=== PATIENT | female | born 1935 | race Caucasian/White ===

== ENCOUNTER 2020-04-03 17:47 | Inpatient (IN) | payer MEDICARE, BC ==
[~2020-04-03] VITALS: Ht 170.2 cm; Wt 85.7 kg
[2020-04-03 18:26] LABS: BASO % 0 % (0-3); EOS % 0 % (0-3); HEMATOCRIT 39.7 % (36.0-47.0); LYMPH # 0.7 x10^3/uL (1.0-4.8); LYMPH % 9 % (24-48); MEAN CORPUSCULAR HEMOGLOBIN 27 pg (25-35); MEAN CORPUSCULAR HGB CONC 33 g/dL (31-37); MEAN CORPUSCULAR VOLUME 83 fL (79-100); MONO # 0.9 x10^3/uL (0.0-1.1); MONO % 12 % (0-9); NEUT # 5.7 x10^3/uL (1.8-7.7); NEUT % 79 % (31-73); PLATELET COUNT 227 x10^3/uL (140-400); RED CELL DISTRIBUTION WIDTH 14.4 % (11.5-14.5); WHITE BLOOD COUNT 7.3 x10^3/uL (4.0-11.0)
--- NOTE | 2020-04-03 18:36 | PHYS DOC ---
Past Medical History Past Medical History: Anxiety, Arthritis, Asthma, Constipation, Diabetes-Type II, High Cholesterol, Other Additional Past Medical Histor: peripheral edema; parkinson; Past Surgical History: No Surgical History Smoking Status: Never Smoker Alcohol Use: None General Adult EDM: Chief Complaint: HYPOGLYCEMIA HPI: HPI: Patient is a 85 year old female with a past medical history of anxiety, asthma, diabetes hyperlipidemia and parkinsons presents with for evaluation after being found by family unresponsive. On EMS arrival patient was unrespon jas with a blood sugar of 58-- she was treated with D10 and became responsive. On my exam patient is alert to name-- she is confused on year, place, and president. She states she lives at her home in [place]. She does not know why she is in the ER. She has no complaints. Review of Systems: Review of Systems: unable to obtain due to altered mental status vs dementia Heart Score: Risk Factors: Risk Factors: DM, Current or recent (<one month) smoker, HTN, HLP, family history of CAD, obesity. Risk Scores: Score 0 - 3: 2.5% MACE over next 6 weeks - Discharge Home Score 4 - 6: 20.3% MACE over next 6 weeks - Admit for Clinical Observation Score 7 - 10: 72.7% MACE over next 6 weeks - Early Invasive Strategies Allergies: Allergies: Allergies Coded Allergies Type Severity Reaction Last Updated Verified No Known Drug Allergies 04/03/20 No Physical Exam: PE: Constitutional: Well developed, well nourished, no acute distress, non-toxic appearance. [] HENT: Normocephalic, atraumatic, bilateral external ears normal, oropharynx moist, no oral exudates, nose normal. [] Eyes: PERRLA, EOMI, conjunctiva normal, no discharge. [] Neck: Normal range of motion, no tenderness, supple, no stridor. [] Cardiovascular:Heart rate regular rhythm, no murmur [] Lungs & Thorax: Bilateral breath sounds clear to auscultation [] Abdomen: Bowel sounds normal, soft, no tenderness, no masses, no pulsatile masses. [] Skin: Warm, dry, no erythema, no rash. [] Back: No tenderness, no CVA tenderness. [] Extremities: No tenderness, no cyanosis, no clubbing, ROM intact, no edema. [] Neurologic: Alert and oriented X 3, normal motor function, normal sensory function, no focal deficits noted. [] Psychologic: Affect normal, judgement normal, mood normal. [] Current Patient Data: Labs: Laboratory Tests Test 04/03/20 17:57 Glucose (Fingerstick) 115 mg/dL (70-99) H Vital Signs: Vital Signs Date Time Temp Pulse Resp B/P (MAP) Pulse Ox O2 Delivery O2 Flow Rate FiO2 04/03/20 17:47 98.3 86 16 155/72 (99) 98 Room Air 98.3 EKG: EKG: [] Radiology/Procedures: Radiology/Procedures: [] Course & Med Decision Making: Course & Med Decision Making Pertinent Labs and Imaging studies reviewed. (See chart for details) [] Dragon Disclaimer: Mari Disclaimer: This electronic medical record was generated, in whole or in part, using a voice recognition dictation system. SOFY HILLMAN DO Apr 03, 2020 18:36
[2020-04-03 19:29] LABS: ALBUMIN 2.9 g/dL (3.4-5.0); ALBUMIN/GLOBULIN RATIO 0.7 (1.0-1.7); CALCIUM 8.8 mg/dL (8.5-10.1); CREATININE 1.2 mg/dL (0.6-1.0); GFR 42.8; TOTAL BILIRUBIN 0.4 mg/dL (0.2-1.0); TOTAL PROTEIN 7.2 g/dL (6.4-8.2)
[2020-04-03 19:37] LABS: POTASSIUM 2.9 mmol/L (3.5-5.1)
[2020-04-03] MEDS ORDERED: IV DEXTROSE 5% - 0.9 % NACL 1,000 ML IV ONE (20:00)
[2020-04-03] MEDS ORDERED: DEXTROSE 50% 25 GM / 50ML DISP.SYRIN. IV ONE ×2 (20:07→20:15)
[2020-04-03] MEDS: POTASSIUM CHLORIDE 10MEQ 100 ML IV SCH ×2 (20:15→21:50)
[2020-04-03] MEDS ORDERED: POTASSIUM CHLORIDE 20 MEQ TABLET.ER. PO ONE (20:15)
[2020-04-03 20:49] LABS: BILIRUBIN,URINE NEGATIVE (NEG); CLARITY,URINE CLEAR; COLOR,URINE YELLOW; NITRITE,URINE NEGATIVE (NEG); PH,URINE 5.5 (<5.0-8.0); PROTEIN,URINE 30 mg/dL (NEG-TRACE)
[2020-04-03 20:54] LABS: HYALINE CASTS, URINE MODERATE /HPF
[2020-04-03 20:55] LABS: AMORPHOUS SEDIMENT,UR PRESENT /HPF; BACTERIA,URINE 0 /HPF (0-FEW); RBC,URINE 0 /HPF (0-2); WBC,URINE 0 /HPF (0-4)
[2020-04-03] MEDS ORDERED: POTASSIUM CL 20MEQ D5-0.45NACL 1,000 ML IV ONE (21:00)
--- NOTE | 2020-04-03 21:41 | RAD ---
Exam: Chest one INDICATION: Hypoglycemia TECHNIQUE: Frontal view of the chest Comparisons: None FINDINGS: The cardiomediastinal silhouette and pulmonary vessels are within normal limits. The lung and pleural spaces are clear. IMPRESSION: No acute cardiopulmonary process. Electronically signed by: Karen Dan MD (04/03/2020 9:37 PM) [place]
[2020-04-03] MEDS ORDERED: ACETAMINOPHEN 325 MG TABLET. PO PRN (22:45)
[2020-04-03] MEDS ORDERED: DEXTROSE 50% 25 GM / 50ML DISP.SYRIN. IV PRN (22:45)
[2020-04-03] MEDS ORDERED: DOCUSATE SODIUM 100 MG CAPSULE. PO PRN (22:45)
[2020-04-03] MEDS ORDERED: guaiFENesin ORAL 200 MG/10 ML LIQUID. PO PRN (22:45)
[2020-04-03] MEDS ORDERED: ONDANSETRON PF 4 MG/2 ML VIAL. IV PRN (22:45)
[2020-04-03] MEDS: HEPARIN for SUB-Q USE 5,000 UNIT/ML VIAL. SQ SCH (23:10)
--- NOTE | 2020-04-04 07:47 | PDOC1 ---
History and Physical Date of Admission Date of Admission DATE: 04/04/20 TIME: 07:41 Identification/Chief Complaint Chief Complaint Confusion Source Source: Caregiver, Chart review History of Present Illness History of Present Illness Ms Quintana is an 85yo F resident of [facility]) w/ PMHx Anxiety, Arthritis, Asthma, Constipation, Diabetes-Type II, High Cholesterol, tremors who was tested positive for COVID 19 on 03/27/2020 presents to ED after being found by assisted living staff unresponsive. On EMS arrival patient was unresponsive with a blood sugar of 58-- she was treated with D10 and became responsive. She awakened confused on year, place, and president, thought she was in [place]. Repeat blood glucose 26 and K 2.9. Started on D5 infusion and admitted for further care. CXR clear. Past Medical History Cardiovascular: HTN, Hyperlipidemia Endocrine: Diabetes Past Surgical History Past Surgical History: No pertinent history Family History Family History: Family History Unknown Social History Smoke: No ALCOHOL: none Drugs: None Current Medications Current Medications Current Medications Potassium Chloride (Klor-Con) 40 meq 1X ONCE PO Last administered on 04/03/20at 20:01; Start 04/03/20 at 20:15; Stop 04/03/20 at 20:16; Status DC Potassium Chloride/Water 100 ml @ 100 mls/hr Q1H IV Last administered on 04/03/20at 21:50; Start 04/03/20 at 20:30; Stop 04/03/20 at 22:29; Status DC Dextrose/Sodium Chloride 1,000 ml @ 75 mls/hr 1X ONCE IV Last administered on 04/03/20at 20:01; Start 04/03/20 at 20:00; Stop 04/04/20 at 09:19 Dextrose (Dextrose 50%-Water Syringe) 25 gm STK-MED ONCE IV ; Start 04/03/20 at 20:07; Stop 04/03/20 at 20:07; Status DC Dextrose (Dextrose 50%-Water Syringe) 25 gm 1X ONCE IV Last administered on 04/03/20at 20:15; Start 04/03/20 at 20:15; Stop 04/03/20 at 20:16; Status DC Potassium Chloride/Dextrose/ Sod Cl 1,000 ml @ 75 mls/hr [id number] ONCE IV ; Start 04/03/20 at 21:00; Stop 04/04/20 at 10:19 Insulin Human Lispro (HumaLOG) 0-5 UNITS TIDWMEALS SQ ; Start 04/04/20 at 08:00 Dextrose (Dextrose 50%-Water Syringe) 12.5 gm PRN Q15MIN PRN IV SEE COMMENTS; Start 04/03/20 at 22:45 Heparin Sodium (Porcine) (Heparin Sodium) 5,000 unit Q8HRS SQ Last administered on 04/03/20at 23:10; Start 04/03/20 at 23:00 Ondansetron HCl (Zofran) 4 mg PRN Q4HRS PRN IV NAUSEA/VOMITING 1ST CHOICE; Start 04/03/20 at 22:45 Acetaminophen (Tylenol) 650 mg PRN Q4HRS PRN PO TEMP OVER 100.4F OR MILD PAIN; Start 04/03/20 at 22:45 Docusate Sodium (Colace) 100 mg PRN BID PRN PO HARD STOOLS; Start 04/03/20 at 22:45 Guaifenesin (Robitussin) 200 mg PRN Q4HRS PRN PO COUGH; Start 04/03/20 at 22:45 Allergies Allergies: Coded Allergies: No Known Drug Allergies (Unverified , 04/03/20) ROS General: YES: Fatigue, Malaise; No: Chills, Night Sweats, Appetite, Other PSYCHOLOGICAL ROS: No: Anxiety, Behavioral Disorder, Concentration difficultie, Decreased libido, Depression, Disorientation, Hallucinations, Hostility, Irritablity, Memory difficulties, Mood Swings, Obsessive thoughts, Physical abuse, Sexual abuse, Sleep disturbances, Suicidal ideation, Other Eyes: No Blurry vision, No Decreased vision, No Double vision, No Dry eyes, No Excessive tearing, No Eye Pain, No Itchy Eyes, No Loss of vision, No Photophobi a, No Scotomata, No Uses contacts, No Uses glasses, No Other HEENT: No: Heacaches, Visual Changes, Hearing change, Nasal congestion, Nasal discharge, Oral lesions, Sinus pain, Sore Throat, Epistaxis, Sneezing, Snoring, Tinnitus, Vertigo, Vocal changes, Other ALLERGY AND IMMUNOLOGY: No: Hives, Insect Bite Sensitivity, Itchy/Watery Eyes, Nasal Congestion, Post Nasal Drip, Seasonal Allergies, Other Hematological and Lymphatic: No: Bleeding Problems, Blood Clots, Blood Transfusions, Brusing, Night Sweats, Pallor, Swollen Lymph Nodes, Other ENDOCRINE: No: Breast Changes, Galactorrhea, Hair Pattern Changes, Hot Flashes, Malaise/lethargy, Mood Swings, Palpitations, Polydipsia/polyuria, Skin Changes, Temperature Intolerance, Unexpected Weight Changes, Other Breast: No New/Changing Breast Lumps, No Nipple changes, No Nipple discharge, No Other Respiratory: No: Cough, Hemoptysis, Orthopnea, Pleuritic Pain, Shortness of breath, SOB with excertion, Sputum Changes, Stridor, Tachypnea, Wheezing, Other Cardiovascular: No Chest Pain, No Palpitations, No Orthopnea, No Paroxysmal Noc. Dyspnea, No Edema, No Lt Headedness, No Other Gastrointestinal: No Nausea, No Vomiting, No Abdominal Pain, No Diarrhea, No Constipation, No Melena, No Hematochezia, No Other Genitourinary: No Dysuria, No Frequency, No Incontinence, No Hematuria, No Retention, No Discharge, No Urgency, No Pain, No Flank Pain, No Other, No , No , No , No , No , No , No Musculoskeletal: No Gait Disturbance, No Joint Pain, No Joint Stiffness, No Joint Swelling, No Muscle Pain, No Muscular Weakness, No Pain In:, No Swelling In:, No Other Neurological: No Behavorial Changes, No Bowel/Bladder ControlChng, No C onfusion, No Dizziness, No Gait Disturbance, No Headaches, No Impaired Coord/balance, No Memory Loss, No Numbness/Tingling, No Seizures, No Speech Problems, No Tremors, No Visual Changes, No Weakness, No Other Skin: No Dry Skin, No Eczema, No Hair Changes, No Lumps, No Mole Changes, No Mottling, No Nail Changes, No Pruritus, No Rash, No Skin Lesion Changes, No Other, No Acne Physical Exam General: Alert, Cooperative, No acute distress HEENT: Atraumatic, PERRLA, EOMI, Mucous membr. moist/pink Lungs: Clear to auscultation, Normal air movement Heart: S1S2, RRR, no thrills, no rubs, no gallops, no murmurs Abdomen: Normal bowel sounds, Soft, No tenderness, No hepatosplenomegaly, No masses Rectal Exam: not examined Extremities: No clubbing, No cyanosis, No edema, Normal pulses, No tenderness/swelling Skin: No rashes, No breakdown, No significant lesion Neuro: Normal gait, Normal speech, Strength at 5/5 X4 ext, Normal tone, Sensation intact, Cranial nerves 3-12 NL, Reflexes 2+ Vitals Vitals Vital Signs Date Time Temp Pulse Resp B/P (MAP) Pulse Ox O2 Delivery O2 Flow Rate FiO2 04/04/20 05:00 66 20 165/95 (118) 97 Room Air 04/03/20 17:47 98.3 98.3 Labs Labs Laboratory Tests Test 04/03/20 17:57 04/03/20 18:00 04/03/20 20:03 04/03/20 20:40 Glucose (Fingerstick) 115 mg/dL (70-99) 26 mg/dL (70-99) White Blood Count 7.3 x10^3/uL (4.0-11.0) Red Blood Count 4.80 x10^6/uL (3.50-5.40) Hemoglobin 13.0 g/dL (12.0-15.5) Hematocrit 39.7 % (36.0-47.0) Mean Corpuscular Volume 83 fL (79-100) Mean Corpuscular Hemoglobin 27 pg (25-35) Mean Corpuscular Hemoglobin Concent 33 g/dL (31-37) Red Cell Distribution Width 14.4 % (11.5-14.5) Platelet Count 227 x10^3/uL (140-400) Neutrophils (%) (Auto) 79 % (31-73) Lymphocytes (%) (Auto) 9 % (24-48) Monocytes (%) (Auto) 12 % (0-9) Eosinophils (%) (Auto) 0 % (0-3) Basophils (%) (Auto) 0 % (0-3) Neutrophils # (Auto) 5.7 x10^3/uL (1.8-7.7) Lymphocytes # (Auto) 0.7 x10^3/uL (1.0-4.8) Monocytes # (Auto) 0.9 x10^3/uL (0.0-1.1) Eosinophils # (Auto) 0.0 x10^3/uL (0.0-0.7) Basophils # (Auto) 0.0 x10^3/uL (0.0-0.2) Sodium Level 140 mmol/L (136-145) Potassium Level 2.9 mmol/L (3.5-5.1) Chloride Level 101 mmol/L (98-107) Carbon Dioxide Level 26 mmol/L (21-32) Anion Gap 13 (6-14) Blood Urea Nitrogen 22 mg/dL (7-20) Creatinine 1.2 mg/dL (0.6-1.0) Estimated GFR (Cockcroft-Gault) 42.8 BUN/Creatinine Ratio 18 (6-20) Glucose Level 114 mg/dL (70-99) Calcium Level 8.8 mg/dL (8.5-10.1) Magnesium Level 2.3 mg/dL (1.8-2.4) Total Bilirubin 0.4 mg/dL (0.2-1.0) Aspartate Amino Transf (AST/SGOT) 85 U/L (15-37) Alanine Aminotransferase (ALT/SGPT) 36 U/L (14-59) Alkaline Phosphatase 101 U/L (46-116) Troponin I Quantitative < 0.017 ng/mL (0.000-0.055) Total Protein 7.2 g/dL (6.4-8.2) Albumin 2.9 g/dL (3.4-5.0) Albumin/Globulin Ratio 0.7 (1.0-1.7) Urine Collection Type U cath Urine Color Yellow Urine Clarity Clear Urine pH 5.5 (<5.0-8.0) Urine Specific [place]o 1.015 (1.000-1.030) Urine Protein 30 mg/dL (NEG-TRACE) Urine Glucose (UA) 100 mg/dL (NEG) Urine Ketones (Stick) Negative mg/dL (NEG) Urine Blood Small (NEG) Urine Nitrite Negative (NEG) Urine Bilirubin Negative (NEG) Urine Urobilinogen Dipstick 1.0 mg/dL (0.2 mg/dL) Urine Leukocyte Esterase Negative (NEG) Urine RBC 0 /HPF (0-2) Urine WBC 0 /HPF (0-4) Urine Transitional Epithelial Cells Few /LPF Urine Amorphous Sediment Present /HPF Urine Bacteria 0 /HPF (0-FEW) Urine Hyaline Casts Moderate /HPF Urine Mucus Marked /LPF Test 04/04/20 06:24 Glucose (Fingerstick) 71 mg/dL (70-99) Laboratory Tests Test 04/03/20 17:57 04/03/20 18:00 04/03/20 20:03 04/03/20 20:40 Glucose (Fingerstick) 115 mg/dL (70-99) 26 mg/dL (70-99) White Blood Count 7.3 x10^3/uL (4.0-11.0) Red Blood Count 4.80 x10^6/uL (3.50-5.40) Hemoglobin 13.0 g/dL (12.0-15.5) Hematocrit 39.7 % (36.0-47.0) Mean Corpuscular Volume 83 fL (79-100) Mean Corpuscular Hemoglobin 27 pg (25-35) Mean Corpuscular Hemoglobin Concent 33 g/dL (31-37) Red Cell Distribution Width 14.4 % (11.5-14.5) Platelet Count 227 x10^3/uL (140-400) Neutrophils (%) (Auto) 79 % (31-73) Lymphocytes (%) (Auto) 9 % (24-48) Monocytes (%) (Auto) 12 % (0-9) Eosinophils (%) (Auto) 0 % (0-3) Basophils (%) (Auto) 0 % (0-3) Neutrophils # (Auto) 5.7 x10^3/uL (1.8-7.7) Lymphocytes # (Auto) 0.7 x10^3/uL (1.0-4.8) Monocytes # (Auto) 0.9 x10^3/uL (0.0-1.1) Eosinophils # (Auto) 0.0 x10^3/uL (0.0-0.7) Basophils # (Auto) 0.0 x10^3/uL (0.0-0.2) Sodium Level 140 mmol/L (136-145) Potassium Level 2.9 mmol/L (3.5-5.1) Chloride Level 101 mmol/L (98-107) Carbon Dioxide Level 26 mmol/L (21-32) Anion Gap 13 (6-14) Blood Urea Nitrogen 22 mg/dL (7-20) Creatinine 1.2 mg/dL (0.6-1.0) Estimated GFR (Cockcroft-Gault) 42.8 BUN/Creatinine Ratio 18 (6-20) Glucose Level 114 mg/dL (70-99) Calcium Level 8.8 mg/dL (8.5-10.1) Magnesium Level 2.3 mg/dL (1.8-2.4) Total Bilirubin 0.4 mg/dL (0.2-1.0) Aspartate Amino Transf (AST/SGOT) 85 U/L (15-37) Alanine Aminotransferase (ALT/SGPT) 36 U/L (14-59) Alkaline Phosphatase 101 U/L (46-116) Troponin I Quantitative < 0.017 ng/mL (0.000-0.055) Total Protein 7.2 g/dL (6.4-8.2) Albumin 2.9 g/dL (3.4-5.0) Albumin/Globulin Ratio 0.7 (1.0-1.7) Urine Collection Type U cath Urine Color Yellow Urine Clarity Clear Urine pH 5.5 (<5.0-8.0) Urine Specific [place] 1.015 (1.000-1.030) Urine Protein 30 mg/dL (NEG-TRACE) Urine Glucose (UA) 100 mg/dL (NEG) Urine Ketones (Stick) Negative mg/dL (NEG) Urine Blood Small (NEG) Urine Nitrite Negative (NEG) Urine Bilirubin Negative (NEG) Urine Urobilinogen Dipstick 1.0 mg/dL (0.2 mg/dL) Urine Leukocyte Esterase Negative (NEG) Urine RBC 0 /HPF (0-2) Urine WBC 0 /HPF (0-4) Urine Transitional Epithelial Cells Few /LPF Urine Amorphous Sediment Present /HPF Urine Bacteria 0 /HPF (0-FEW) Urine Hyaline Casts Moderate /HPF Urine Mucus Marked /LPF Test 04/04/20 06:24 Glucose (Fingerstick) 71 mg/dL (70-99) Images Images CXR: The cardiomediastinal silhouette and pulmonary vessels are within normal limits. The lung and pleural spaces are clear. IMPRESSION: No acute cardiopulmonary process. VTE Prophylaxis Ordered VTE Prophylaxis Devices: No VTE Pharmacological Prophylaxi: Yes Assessment/Plan Assessment/Plan A/P: Acute encephalopathy - metabolic from hypoglycemia Hypokalemia - replace IV and PO TAMANNA - vasomotor nephropathy Hypoglycemia - would avoid sulfonylureas Anxiety Arthritis Asthma - prn inhaler Constipation - stool softeners Diabetes-Type II - sliding scale once hypoglycemia resolves High Cholesterol Tremors - unknown if parkinons is a diagnosis COVID 19 + - no O2 requirements, will monitor FEN - ADA diet PPX - Lovenox CODE - DNR/DNI Dispo - inpatient for above Justifications for Admission Other Justification MARANDA WYNN MD Apr 04, 2020 07:47
[2020-04-04] MEDS: HEPARIN for SUB-Q USE 5,000 UNIT/ML VIAL. SQ SCH ×3 (08:13→22:19)
[2020-04-04 08:22] LABS: BASO % 0 % (0-3); EOS % 1 % (0-3); HEMATOCRIT 39.1 % (36.0-47.0); HEMOGLOBIN 12.8 g/dL (12.0-15.5); LYMPH # 1.2 x10^3/uL (1.0-4.8); LYMPH % 19 % (24-48); MEAN CORPUSCULAR HEMOGLOBIN 27 pg (25-35); MEAN CORPUSCULAR HGB CONC 33 g/dL (31-37); MEAN CORPUSCULAR VOLUME 82 fL (79-100); MONO # 0.9 x10^3/uL (0.0-1.1); MONO % 14 % (0-9); NEUT # 4.3 x10^3/uL (1.8-7.7); NEUT % 67 % (31-73); PLATELET COUNT 244 x10^3/uL (140-400); RED BLOOD COUNT 4.75 x10^6/uL (3.50-5.40); RED CELL DISTRIBUTION WIDTH 14.8 % (11.5-14.5); WHITE BLOOD COUNT 6.4 x10^3/uL (4.0-11.0)
[2020-04-04 08:47] LABS: CALCIUM 8.4 mg/dL (8.5-10.1); GFR 52.8; POTASSIUM 3.8 mmol/L (3.5-5.1)
[2020-04-04] MEDS ORDERED: IV DEXTROSE 5% - 0.9 % NACL 1,000 ML IV ONE (09:45)
--- NOTE | 2020-04-04 09:51 | EKG ---
[facility] [address] [place] [address] Test Date: 2020-04-03 Test Time: 17:48:37 Pat Name: HAYDEN HANEY Department: Room: Gender: F Solderer Torch: : 1935 Requested By: SOFY HILLMAN Order Number: [id number] Reading MD: Measurements Intervals [place] Rate: 84 P: 34 VA: 152 QRS: -36 QRSD: 100 T: 56 QT: 378 QTc: 450 Interpretive Statements SINUS RHYTHM ABNORMAL LEFT AXIS DEVIATION R-S TRANSITION ZONE IN V LEADS DISPLACED TO THE LEFT LEFT ANTERIOR FASCICULAR BLOCK T ABNORMALITY IN HIGH LATERAL LEADS ABNORMAL ECG RI6.02 No previous ECG available for comparison [id number]
[2020-04-04] MEDS: INSULIN LISPRO 300 UNITS/3 ML VIAL. SQ SCH ×2 (12:00→17:00)
[2020-04-04 15:00] VITALS: BP 144/98
--- NOTE | 2020-04-04 17:11 | NUR ---
Pt transferred from ED to room 650 by wheelchair at approx 1655. Report given to OSWALDO Crowley. Belongings sent with pt at time of transfer.
[2020-04-04 17:30] VITALS: BP 150/65
--- NOTE | 2020-04-04 18:00 | NUR ---
Call placed to Susannah HUDSON to get patient medical history and influenza vax status. Voicemail left. Will continue to monitor.
[2020-04-04] MEDS ORDERED: LOPE2TAB27 PO (18:57)
[2020-04-04] MEDS ORDERED: FOLI0.4T2 PO (18:57)
[2020-04-04] MEDS ORDERED: ALPR0.25 PO (18:57)
[2020-04-04] MEDS ORDERED: BISM262T94 PO (18:57)
[2020-04-04] MEDS ORDERED: ASPI81TA59 PO (18:57)
[2020-04-04] MEDS ORDERED: ATOR20TA58 PO (18:57)
[2020-04-04] MEDS ORDERED: FLUT1DIS IH (18:57)
[2020-04-04] MEDS ORDERED: SODI44SP NS (18:57)
[2020-04-04] MEDS ORDERED: CALC500T31 PO (18:57)
[2020-04-04] MEDS ORDERED: GLIP10TA13 PO (18:57)
[2020-04-04 19:00] VITALS: BP 160/76
[2020-04-04] MEDS ORDERED: FURO40TA4 PO (19:36)
[2020-04-04] MEDS ORDERED: HYDR28.423 TP (19:36)
[2020-04-04] MEDS ORDERED: ACET500T68 PO (19:36)
[2020-04-04] MEDS ORDERED: ACET325T9 PO (19:36)
[2020-04-04] MEDS ORDERED: POLY2500 PO (19:36)
[2020-04-04] MEDS ORDERED: CARB1TAB2 PO (19:36)
[2020-04-04] MEDS ORDERED: BENZ1LOZ4 MM (19:36)
[2020-04-04] MEDS ORDERED: GUAI-467 PO (19:36)
[2020-04-04] MEDS ORDERED: VALS80TA3 PO (19:36)
[2020-04-04] MEDS ORDERED: IBUP-1027 PO (19:36)
[2020-04-04] MEDS ORDERED: MAGN24003 PO (19:36)
[2020-04-04] MEDS ORDERED: MELO7.5T29 PO (19:36)
[2020-04-04] MEDS ORDERED: MONT10TA49 PO (19:36)
[2020-04-04] MEDS ORDERED: ACETAMINOPHEN 500 MG TABLET PO PRN (19:45)
[2020-04-04] MEDS ORDERED: guaiFENesin ORAL 200 MG/10 ML LIQUID. PO PRN (19:45)
[2020-04-04] MEDS ORDERED: SODIUM CHLORIDE 0.65% NASAL SPRAY 45ML BOTTLE. NS PRN (19:45)
[2020-04-04] MEDS ORDERED: BISMUTH SUBSALICYLATE 262 MG/15 ML ORAL.SUSP 236ML BOTTLE. PO PRN (20:00)
[2020-04-04] MEDS ORDERED: ATORVASTATIN CALCIUM 20 MG TABLET PO SCH (21:00)
[2020-04-04] MEDS: CARBIDOPA/LEVODOPA 25/100MG TABLET PO SCH (22:19)
[2020-04-04 23:00] VITALS: BP 143/82
[2020-04-05 03:00] VITALS: BP 142/62
[2020-04-05 05:27] LABS: BASO % 0 % (0-3); EOS # 0.1 x10^3/uL (0.0-0.7); EOS % 1 % (0-3); HEMATOCRIT 34.1 % (36.0-47.0); HEMOGLOBIN 11.5 g/dL (12.0-15.5); LYMPH # 1.3 x10^3/uL (1.0-4.8); LYMPH % 21 % (24-48); MEAN CORPUSCULAR HEMOGLOBIN 28 pg (25-35); MEAN CORPUSCULAR HGB CONC 34 g/dL (31-37); MEAN CORPUSCULAR VOLUME 82 fL (79-100); MONO % 15 % (0-9); NEUT # 4.1 x10^3/uL (1.8-7.7); NEUT % 63 % (31-73); PLATELET COUNT 234 x10^3/uL (140-400); RED BLOOD COUNT 4.16 x10^6/uL (3.50-5.40); RED CELL DISTRIBUTION WIDTH 14.6 % (11.5-14.5); WHITE BLOOD COUNT 6.6 x10^3/uL (4.0-11.0)
[2020-04-05] MEDS: HEPARIN for SUB-Q USE 5,000 UNIT/ML VIAL. SQ SCH (05:43)
[2020-04-05 06:00] LABS: ALBUMIN 2.3 g/dL (3.4-5.0); ALBUMIN/GLOBULIN RATIO 0.6 (1.0-1.7); CALCIUM 8.3 mg/dL (8.5-10.1); CREATININE 0.9 mg/dL (0.6-1.0); GFR 59.7; POTASSIUM 3.6 mmol/L (3.5-5.1); TOTAL BILIRUBIN 0.5 mg/dL (0.2-1.0); TOTAL PROTEIN 5.9 g/dL (6.4-8.2)
[2020-04-05 07:00] VITALS: BP 153/65
[2020-04-05] MEDS: INSULIN LISPRO 300 UNITS/3 ML VIAL. SQ SCH ×3 (08:00→16:52)
--- NOTE | 2020-04-05 08:40 | PDOC ---
[employer] PROGRESS NOTE Date of Service DOS: DATE: 04/05/20 TIME: 08:40 Chief Complaint Chief Complaint A/P: Acute encephalopathy - metabolic from hypoglycemia Hypokalemia - replace IV and PO TAMANNA - vasomotor nephropathy Hypoglycemia - would avoid sulfonylureas Anxiety Arthritis Asthma - prn inhaler Constipation - stool softeners Diabetes-Type II - sliding scale once hypoglycemia resolves High Cholesterol Tremors - unknown if parkinons is a diagnosis COVID 19 + - no O2 requirements, will monitor FEN - ADA diet PPX - Lovenox CODE - DNR/DNI Dispo - inpatient for above History of Present Illness History of Present Illness Ms Quintana is an 85yo F resident of [facility] ([facility]) w/ PMHx Anxiety, Arthritis, Asthma, Constipation, Diabetes-Type II, High Cholesterol, tremors who was tested positive for COVID 19 on 03/27/2020 presents to ED after being found by assisted living staff unresponsive. On EMS arrival patient was unresponsive with a blood sugar of 58-- she was treated with D10 and became responsive. She awakened confused on year, place, and president, thought she was in [place]. Repeat blood glucose 26 and K 2.9. Started on D5 infusion and admitted for further care. CXR clear. T-max overnight 100.1 F. Not requiring O2. off D5 with normoglycemia. Eating well on her own. Pleasantly confused. Tremor in left hand. Slight cough. Vitals/I&O Vitals/I&O: Vital Signs Date Time Temp Pulse Resp B/P (MAP) Pulse Ox O2 Delivery O2 Flow Rate FiO2 04/05/20 07:00 100.1 77 18 153/65 (94) 91 Room Air 100.1 I & O 04/04/20 04/04/20 04/05/20 15:00 23:00 07:00 Intake Total 1000 ml 0 ml 150 ml Balance 1000 ml 0 ml 150 ml Physical Exam General: Alert, Cooperative, No acute distress Abdomen: Normal bowel sounds, Soft, No tenderness, No hepatosplenomegaly, No masses Extremities: No clubbing, No cyanosis, No edema, Normal pulses, No tenderness/swelling Skin: No rashes, No breakdown, No significant lesion Labs Labs: Laboratory Tests Test 04/04/20 11:09 04/04/20 12:05 04/04/20 13:22 04/04/20 17:23 Glucose (Fingerstick) 89 mg/dL (70-99) 124 mg/dL (70-99) 136 mg/dL (70-99) 128 mg/dL (70-99) Test 04/04/20 21:41 04/05/20 04:55 04/05/20 08:26 Glucose (Fingerstick) 130 mg/dL (70-99) 96 mg/dL (70-99) White Blood Count 6.6 x10^3/uL (4.0-11.0) Red Blood Count 4.16 x10^6/uL (3.50-5.40) Hemoglobin 11.5 g/dL (12.0-15.5) Hematocrit 34.1 % (36.0-47.0) Mean Corpuscular Volume 82 fL (79-100) Mean Corpuscular Hemoglobin 28 pg (25-35) Mean Corpuscular Hemoglobin Concent 34 g/dL (31-37) Red Cell Distribution Width 14.6 % (11.5-14.5) Platelet Count 234 x10^3/uL (140-400) Neutrophils (%) (Auto) 63 % (31-73) Lymphocytes (%) (Auto) 21 % (24-48) Monocytes (%) (Auto) 15 % (0-9) Eosinophils (%) (Auto) 1 % (0-3) Basophils (%) (Auto) 0 % (0-3) Neutrophils # (Auto) 4.1 x10^3/uL (1.8-7.7) Lymphocytes # (Auto) 1.3 x10^3/uL (1.0-4.8) Monocytes # (Auto) 1.0 x10^3/uL (0.0-1.1) Eosinophils # (Auto) 0.1 x10^3/uL (0.0-0.7) Basophils # (Auto) 0.0 x10^3/uL (0.0-0.2) Sodium Level 139 mmol/L (136-145) Potassium Level 3.6 mmol/L (3.5-5.1) Chloride Level 105 mmol/L (98-107) Carbon Dioxide Level 25 mmol/L (21-32) Anion Gap 9 (6-14) Blood Urea Nitrogen 10 mg/dL (7-20) Creatinine 0.9 mg/dL (0.6-1.0) Estimated GFR (Cockcroft-Gault) 59.7 BUN/Creatinine Ratio 11 (6-20) Glucose Level 110 mg/dL (70-99) Calcium Level 8.3 mg/dL (8.5-10.1) Total Bilirubin 0.5 mg/dL (0.2-1.0) Aspartate Amino Transf (AST/SGOT) 62 U/L (15-37) Alanine Aminotransferase (ALT/SGPT) 14 U/L (14-59) Alkaline Phosphatase 85 U/L (46-116) Total Protein 5.9 g/dL (6.4-8.2) Albumin 2.3 g/dL (3.4-5.0) Albumin/Globulin Ratio 0.6 (1.0-1.7) Comment Review of Relevant I have reviewed the following items burak (where applicable) has been applied. Medications: Current Medications Medications (Trade) Dose Ordered Sig/Heather Route PRN Reason Start Time Stop Time Status Last Admin Dose Admin Dextrose/Sodium Chloride 1,000 ml @ 100 mls/hr Q10H ONCE IV 04/04/20 09:45 04/04/20 19:44 DC 04/04/20 10:06 Atorvastatin Calcium (Lipitor) 20 mg QHS PO 04/04/20 21:00 04/04/20 22:19 Carbidopa/Levodopa (Sinemet 25/100) 1 tab BID PO 04/04/20 21:00 04/04/20 22:19 Justifications for Admission Other Justification MARANDA WYNN MD Apr 05, 2020 08:40
[2020-04-05] MEDS ORDERED: POTASSIUM CHLORIDE 20 MEQ TABLET.ER. PO ONE (08:45)
[2020-04-05] MEDS ORDERED: ASPIRIN CHEWABLE 81 MG TABLET. PO SCH (09:00)
[2020-04-05] MEDS ORDERED: FOLIC ACID 1 MG TABLET. PO SCH (09:00)
[2020-04-05] MEDS ORDERED: MONTELUKAST SODIUM 10 MG TABLET. PO SCH (09:00)
[2020-04-05] MEDS ORDERED: FLUTICASONE/VILANTEROL 100/25 INHALER. INH SCH (09:00)
[2020-04-05] MEDS: CARBIDOPA/LEVODOPA 25/100MG TABLET PO SCH (09:29)
[2020-04-05 11:00] VITALS: BP 161/71
--- NOTE | 2020-04-05 11:29 | NUR ---
Pt's FSBS 108. Not shown in [employer], results accidentally rejected by [employer].
[2020-04-05] MEDS ORDERED: SITA50TA PO (14:42)
[2020-04-05] MEDS ORDERED: VALS80TA3 PO (14:42)
--- NOTE | 2020-04-05 14:44 | SNU/HH DC ---
DISCHARGE WITH HOME HEALTH DISCHARGE INFORMATION: Discharge Date: Apr 05, 2020 Final Diagnosis: Acute encephalopathy Condition on Discharge: Stable CODE STATUS: Code Status: DNR/DNI HOME HEALTH: Face to Face: I certify this patient is under my care and that I, or a nurse practitioner or physician's business development assistant working with me, had a face to face encounter that meets the physician face to face encounter requirements with this patient on 04/05/2020. 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 Resources Pt Meets Homebound Status: Limited distance walking POST DISCHARGE ORDERS: Activity Instructions for Disc: Resume previous activity Weight Bearing Status after Di: Full weight bearing DIET AFTER DISCHARGE: ADA CHECKS AFTER DISCHARGE: Checks after discharge: Check blood press - daily, Check blood sugar, ac/hs CERTIFICATION STATEMENT: Certification Statement: Certification Statement: Based on the above finding, I certify that this patient is confined to the home and needs intermittent jail care, physical therapy and/or speech therapy, or continues to need occupational therapy.~ This patient is under my care, and I have initiated the establishment of the plan of care.~ This patient will be followed by myself or a community physician who will periodically review the plan of care. Home Meds Active Scripts Sitagliptin Phosphate (JANUVIA) 50 Mg Tablet, 1 TAB PO DAILY for DM2 for 90 Days, #90 TAB 1 Refill Prov:MARANDA WYNN MD 04/05/20 Valsartan (DIOVAN) 80 Mg Tablet, 80 MG PO DAILY for hld for 90 Days, #90 TAB Prov:MARANDA WYNN MD 04/05/20 Reported Medications Acetaminophen (TYLENOL) 325 Mg Tablet, 650 MG PO PRN Q6HRS PRN for pain fever>100, TAB 04/04/20 Benzocaine/Menthol (SORE THROAT LOZENGE) 1 Each Lozenge, 1 EACH MM PRN Q8HRS PRN for sore throat, LOZENGE 04/04/20 Carbidopa/Levodopa (SINEMET 25-100 MG TABLET) 1 Each Tablet, 1 TAB PO BID for Parkinsons, TAB 04/04/20 Guaifenesin (ROBAFEN) 100 Mg/5 Ml Liquid, 2 TSP PO PRN Q6HRS PRN for nasal congestion, LIQUID 04/04/20 Polyethylene Glycol 3350 (POLYETHYLENE GLYCOL 3350) 2,500 Gm Powder, 17 GM PO PRN Q8HRS PRN for constipation, #255 GM 0 Refills 04/04/20 Montelukast Sodium (MONTELUKAST SODIUM TABLET ) 10 Mg Tablet, 10 MG PO DAILY for FOR ASTHMA, TAB 0 Refills 04/04/20 Magnesium Hydroxide (MILK OF MAGNESIA) 2,400 Mg/10 Ml Oral.susp, 2400 MG PO PRN Q8HRS PRN for constipation, MISC 04/04/20 Hydrocortisone/Aloe Vera (HYDROCORTISONE PLUS 1% CREAM) 28.4 Gm Cream..g., 28.4 GM TP PRN Q8HRS PRN for irritation, EACH 04/04/20 Folic Acid (FOLIC ACID) 0.4 Mg Tablet, 1 MG PO DAILY for SUPPLEMENT, TAB 04/04/20 Fluticasone/Salmeterol (ADVAIR 100-50 DISKUS) 1 Each Disk.w.dev, 1 PUFF IH BID for asthma, #1 INHALER 5 Refills 04/04/20 Sodium Chloride (DEEP SEA) 44 Ml [place], 44 ML NS PRN Q8HRS PRN for congestion, SPRAY 04/04/20 Bismuth Subsalicylate (Kaopectate) 262 Mg Tablet, 30 ML PO PRN Q6HRS PRN for upset stomach, TAB 04/04/20 Atorvastatin Calcium (ATORVASTATIN CALCIUM) 20 Mg Tablet, 1 TAB PO DAILY for HLD, #30 TAB 5 Refills 04/04/20 Aspirin (Children's Aspirin) 81 Mg Tab.chew, 1 TAB PO DAILY for stroke prevention for 30 Days, #30 TAB 0 Refills 04/04/20 Loperamide Hcl (LOPERAMIDE) 2 Mg Tablet, 1 TAB PO PRN Q1HR PRN for loose stools for 30 Days, TAB 0 Refills 04/04/20 Calcium Carbonate (CALCIUM CARBONATE) 500 Mg Tablet, 1 TAB PO PRN Q8HRS PRN for reflux for 30 Days, TAB 0 Refills 04/04/20 Discontinued Reported Medications Acetaminophen (ACETAMINOPHEN) 500 Mg Tablet, 2 TAB PO PRN Q6HRS PRN for pain or fever for 15 Days, #60 TAB 0 Refills 04/04/20 Meloxicam (MELOXICAM) 7.5 Mg Tablet, 1 TAB PO DAILY for arthritis for 30 Days, #30 TAB 0 Refills 04/04/20 Furosemide (FUROSEMIDE) 40 Mg Tablet, 1 TAB PO DAILY for edema, #30 TAB 5 Ref ills 04/04/20 Ibuprofen (IBUPROFEN) 400 Mg Tablet, 400 MG PO PRN Q6HRS PRN for INFLAMMATION, TAB 04/04/20 Glipizide (GLIPIZIDE) 10 Mg Tablet, 1 TAB PO BID for DM, #60 TAB 5 Refills 04/04/20 Alprazolam (XANAX) 0.25 Mg Tablet, 0.25 MG PO PRN Q8HRS PRN for ANXIETY / AGITATION, TAB 0 Refills 04/04/20 MARANDA WYNN MD Apr 05, 2020 14:44
--- NOTE | 2020-04-05 14:50 | PDOC3 ---
Discharge Summary Visit Information Date of Admission: Apr 03, 2020 Date of Discharge: Apr 05, 2020 Admitting Diagnosis: Acute encephalopathy Final Diagnosis Hypoglycemia Brief Hospital Course Allergies Allergies Coded Allergies Type Severity Reaction Last Updated Verified No Known Drug Allergies 04/03/20 No Vital Signs Vital Signs Date Time Temp Pulse Resp B/P (MAP) Pulse Ox O2 Delivery O2 Flow Rate FiO2 04/05/20 11:00 99.3 85 18 161/71 (101) 93 Room Air 99.3 Lab Results Laboratory Tests Test 04/03/20 17:57 04/03/20 18:00 04/03/20 20:03 04/03/20 20:40 Glucose (Fingerstick) 115 mg/dL (70-99) 26 mg/dL (70-99) White Blood Count 7.3 x10^3/uL (4.0-11.0) Red Blood Count 4.80 x10^6/uL (3.50-5.40) Hemoglobin 13.0 g/dL (12.0-15.5) Hematocrit 39.7 % (36.0-47.0) Mean Corpuscular Volume 83 fL (79-100) Mean Corpuscular Hemoglobin 27 pg (25-35) Mean Corpuscular Hemoglobin Concent 33 g/dL (31-37) Red Cell Distribution Width 14.4 % (11.5-14.5) Platelet Count 227 x10^3/uL (140-400) Neutrophils (%) (Auto) 79 % (31-73) Lymphocytes (%) (Auto) 9 % (24-48) Monocytes (%) (Auto) 12 % (0-9) Eosinophils (%) (Auto) 0 % (0-3) Basophils (%) (Auto) 0 % (0-3) Neutrophils # (Auto) 5.7 x10^3/uL (1.8-7.7) Lymphocytes # (Auto) 0.7 x10^3/uL (1.0-4.8) Monocytes # (Auto) 0.9 x10^3/uL (0.0-1.1) Eosinophils # (Auto) 0.0 x10^3/uL (0.0-0.7) Basophils # (Auto) 0.0 x10^3/uL (0.0-0.2) Sodium Level 140 mmol/L (136-145) Potassium Level 2.9 mmol/L (3.5-5.1) Chloride Level 101 mmol/L (98-107) Carbon Dioxide Level 26 mmol/L (21-32) Anion Gap 13 (6-14) Blood Urea Nitrogen 22 mg/dL (7-20) Creatinine 1.2 mg/dL (0.6-1.0) Estimated GFR (Cockcroft-Gault) 42.8 BUN/Creatinine Ratio 18 (6-20) Glucose Level 114 mg/dL (70-99) Calcium Level 8.8 mg/dL (8.5-10.1) Magnesium Level 2.3 mg/dL (1.8-2.4) Total Bilirubin 0.4 mg/dL (0.2-1.0) Aspartate Amino Transf (AST/SGOT) 85 U/L (15-37) Alanine Aminotransferase (ALT/SGPT) 36 U/L (14-59) Alkaline Phosphatase 101 U/L (46-116) Troponin I Quantitative < 0.017 ng/mL (0.000-0.055) Total Protein 7.2 g/dL (6.4-8.2) Albumin 2.9 g/dL (3.4-5.0) Albumin/Globulin Ratio 0.7 (1.0-1.7) Urine Collection Type U cath Urine Color Yellow Urine Clarity Clear Urine pH 5.5 (<5.0-8.0) Urine Specific [place] 1.015 (1.000-1.030) Urine Protein 30 mg/dL (NEG-TRACE) Urine Glucose (UA) 100 mg/dL (NEG) Urine Ketones (Stick) Negative mg/dL (NEG) Urine Blood Small (NEG) Urine Nitrite Negative (NEG) Urine Bilirubin Negative (NEG) Urine Urobilinogen Dipstick 1.0 mg/dL (0.2 mg/dL) Urine Leukocyte Esterase Negative (NEG) Urine RBC 0 /HPF (0-2) Urine WBC 0 /HPF (0-4) Urine Transitional Epithelial Cells Few /LPF Urine Amorphous Sediment Present /HPF Urine Bacteria 0 /HPF (0-FEW) Urine Hyaline Casts Moderate /HPF Urine Mucus Marked /LPF Test 04/04/20 06:24 04/04/20 08:05 04/04/20 08:15 04/04/20 11:09 Glucose (Fingerstick) 71 mg/dL (70-99) 87 mg/dL (70-99) 89 mg/dL (70-99) White Blood Count 6.4 x10^3/uL (4.0-11.0) Red Blood Count 4.75 x10^6/uL (3.50-5.40) Hemoglobin 12.8 g/dL (12.0-15.5) Hematocrit 39.1 % (36.0-47.0) Mean Corpuscular Volume 82 fL (79-100) Mean Corpuscular Hemoglobin 27 pg (25-35) Mean Corpuscular Hemoglobin Concent 33 g/dL (31-37) Red Cell Distribution Width 14.8 % (11.5-14.5) Platelet Count 244 x10^3/uL (140-400) Neutrophils (%) (Auto) 67 % (31-73) Lymphocytes (%) (Auto) 19 % (24-48) Monocytes (%) (Auto) 14 % (0-9) Eosinophils (%) (Auto) 1 % (0-3) Basophils (%) (Auto) 0 % (0-3) Neutrophils # (Auto) 4.3 x10^3/uL (1.8-7.7) Lymphocytes # (Auto) 1.2 x10^3/uL (1.0-4.8) Monocytes # (Auto) 0.9 x10^3/uL (0.0-1.1) Eosinophils # (Auto) 0.0 x10^3/uL (0.0-0.7) Basophils # (Auto) 0.0 x10^3/uL (0.0-0.2) Sodium Level 140 mmol/L (136-145) Potassium Level 3.8 mmol/L (3.5-5.1) Chloride Level 102 mmol/L (98-107) Carbon Dioxide Level 27 mmol/L (21-32) Anion Gap 11 (6-14) Blood Urea Nitrogen 13 mg/dL (7-20) Creatinine 1.0 mg/dL (0.6-1.0) Estimated GFR (Cockcroft-Gault) 52.8 Glucose Level 86 mg/dL (70-99) Calcium Level 8.4 mg/dL (8.5-10.1) Test 04/04/20 12:05 04/04/20 13:22 04/04/20 17:23 04/04/20 21:41 Glucose (Fingerstick) 124 mg/dL (70-99) 136 mg/dL (70-99) 128 mg/dL (70-99) 130 mg/dL (70-99) Test 04/05/20 04:55 04/05/20 08:26 White Blood Count 6.6 x10^3/uL (4.0-11.0) Red Blood Count 4.16 x10^6/uL (3.50-5.40) Hemoglobin 11.5 g/dL (12.0-15.5) Hematocrit 34.1 % (36.0-47.0) Mean Corpuscular Volume 82 fL (79-100) Mean Corpuscular Hemoglobin 28 pg (25-35) Mean Corpuscular Hemoglobin Concent 34 g/dL (31-37) Red Cell Distribution Width 14.6 % (11.5-14.5) Platelet Count 234 x10^3/uL (140-400) Neutrophils (%) (Auto) 63 % (31-73) Lymphocytes (%) (Auto) 21 % (24-48) Monocytes (%) (Auto) 15 % (0-9) Eosinophils (%) (Auto) 1 % (0-3) Basophils (%) (Auto) 0 % (0-3) Neutrophils # (Auto) 4.1 x10^3/uL (1.8-7.7) Lymphocytes # (Auto) 1.3 x10^3/uL (1.0-4.8) Monocytes # (Auto) 1.0 x10^3/uL (0.0-1.1) Eosinophils # (Auto) 0.1 x10^3/uL (0.0-0.7) Basophils # (Auto) 0.0 x10^3/uL (0.0-0.2) Sodium Level 139 mmol/L (136-145) Potassium Level 3.6 mmol/L (3.5-5.1) Chloride Level 105 mmol/L (98-107) Carbon Dioxide Level 25 mmol/L (21-32) Anion Gap 9 (6-14) Blood Urea Nitrogen 10 mg/dL (7-20) Creatinine 0.9 mg/dL (0.6-1.0) Estimated GFR (Cockcroft-Gault) 59.7 BUN/Creatinine Ratio 11 (6-20) Glucose Level 110 mg/dL (70-99) Calcium Level 8.3 mg/dL (8.5-10.1) Total Bilirubin 0.5 mg/dL (0.2-1.0) Aspartate Amino Transf (AST/SGOT) 62 U/L (15-37) Alanine Aminotransferase (ALT/SGPT) 14 U/L (14-59) Alkaline Phosphatase 85 U/L (46-116) Total Protein 5.9 g/dL (6.4-8.2) Albumin 2.3 g/dL (3.4-5.0) Albumin/Globulin Ratio 0.6 (1.0-1.7) Glucose (Fingerstick) 96 mg/dL (70-99) Laboratory Tests Test 04/04/20 17:23 04/04/20 21:41 04/05/20 04:55 04/05/20 08:26 Glucose (Fingerstick) 128 mg/dL (70-99) 130 mg/dL (70-99) 96 mg/dL (70-99) White Blood Count 6.6 x10^3/uL (4.0-11.0) Red Blood Count 4.16 x10^6/uL (3.50-5.40) Hemoglobin 11.5 g/dL (12.0-15.5) Hematocrit 34.1 % (36.0-47.0) Mean Corpuscular Volume 82 fL (79-100) Mean Corpuscular Hemoglobin 28 pg (25-35) Mean Corpuscular Hemoglobin Concent 34 g/dL (31-37) Red Cell Distribution Width 14.6 % (11.5-14.5) Platelet Count 234 x10^3/uL (140-400) Neutrophils (%) (Auto) 63 % (31-73) Lymphocytes (%) (Auto) 21 % (24-48) Monocytes (%) (Auto) 15 % (0-9) Eosinophils (%) (Auto) 1 % (0-3) Basophils (%) (Auto) 0 % (0-3) Neutrophils # (Auto) 4.1 x10^3/uL (1.8-7.7) Lymphocytes # (Auto) 1.3 x10^3/uL (1.0-4.8) Monocytes # (Auto) 1.0 x10^3/uL (0.0-1.1) Eosinophils # (Auto) 0.1 x10^3/uL (0.0-0.7) Basophils # (Auto) 0.0 x10^3/uL (0.0-0.2) Sodium Level 139 mmol/L (136-145) Potassium Level 3.6 mmol/L (3.5-5.1) Chloride Level 105 mmol/L (98-107) Carbon Dioxide Level 25 mmol/L (21-32) Anion Gap 9 (6-14) Blood Urea Nitrogen 10 mg/dL (7-20) Creatinine 0.9 mg/dL (0.6-1.0) Estimated GFR (Cockcroft-Gault) 59.7 BUN/Creatinine Ratio 11 (6-20) Glucose Level 110 mg/dL (70-99) Calcium Level 8.3 mg/dL (8.5-10.1) Total Bilirubin 0.5 mg/dL (0.2-1.0) Aspartate Amino Transf (AST/SGOT) 62 U/L (15-37) Alanine Aminotransferase (ALT/SGPT) 14 U/L (14-59) Alkaline Phosphatase 85 U/L (46-116) Total Protein 5.9 g/dL (6.4-8.2) Albumin 2.3 g/dL (3.4-5.0) Albumin/Globulin Ratio 0.6 (1.0-1.7) Brief Hospital Course Ms Quintana is an 85yo F resident of [facility] ([facility]) w/ PMHx Anxiety, Arthritis, Asthma, Constipation, Diabetes-Type II, High Cholesterol, tremors who was tested positive for COVID 19 on 03/27/2020 presents to ED after being found by assisted living staff unresponsive. On EMS arrival patient was unresponsive with a blood sugar of 58-- she was treated with D10 and became responsive. She awakened confused on year, place, and president, thought she was in [place]. Repeat blood glucose 26 and K 2.9. Started on D5 infusion and admitted for further care. CXR clear. T-max overnight 100.1 F. Not requiring O2. off D5 with normoglycemia. Eating well on her own. Pleasantly confused. Tremor in left hand. Slight cough. D/w daughter, her confusion is at baseline and to permanently hold sulfonylureas given her adverse reaction. Problem list: Acute encephalopathy - metabolic from hypoglycemia Hypokalemia - replaced IV and PO, cont [facility] outpatient TAMANNA - vasomotor nephropathy, improved with IVF Hypoglycemia - would avoid sulfonylureas Anxiety Arthritis Asthma - prn inhaler Constipation - stool softeners Diabetes-Type II - sliding scale once hypoglycemia resolves High Cholesterol Tremors - unknown if parkinons is a diagnosis COVID 19 + - no O2 requirements, will monitor Greater than 30 minutes spent on d/c to [facility] with home health Discharge Information Condition at Discharge: Improved Follow Up: Weeks (1) Disposition/Orders: D/C to Home w/ HH, D/C to Another Facility Scheduled Aspirin (Children's Aspirin) 81 Mg Tab.chew, 1 TAB PO DAILY for stroke prevention for 30 Days, #30 Ref 0 (Reported) Entered as Reported by: RAFY HOOPER on 04/04/201856 Last Taken: Unknown Dose on Unknown Date & Time Last Action: Continued on 04/04/201941 by RAFY HOOPER Atorvastatin Calcium (Atorvastatin Calcium) 20 Mg Tablet, 1 TAB PO DAILY for HLD, #30 Ref 5 (Reported) Entered as Reported by: RAFY HOOPER on 04/04/201856 Last Taken: Unknown Dose on Unknown Date & Time Last Action: Continued on 04/04/201941 by RAFY HOOPER Carbidopa/Levodopa (Sinemet 25-100 Mg Tablet) 1 Each Tablet, 1 TAB PO BID for Parkinsons, (Reported) Entered as Reported by: RAFY HOOPER on 04/04/201935 Last Taken: Unknown Dose on Unknown Date & Time Last Action: Continued on 04/04/201941 by RAFY HOOPER Fluticasone/Salmeterol (Advair 100-50 Diskus) 1 Each Disk.w.dev, 1 PUFF IH BID for asthma, #1 Ref 5 (Reported) Entered as Reported by: RAFY HOOPER on 04/04/201856 Last Taken: Unknown Dose on Unknown Date & Time Last Action: Converted on 04/04/201941 by RAFY HOOPER Folic Acid (Folic Acid) 0.4 Mg Tablet, 1 MG PO DAILY for SUPPLEMENT, (Reported) Entered as Reported by: RAFY HOOPER on 04/04/201856 Last Taken: Unknown Dose on Unknown Date & Time Last Action: Converted on 04/04/201941 by RAFY HOOPER Montelukast Sodium (Montelukast Sodium Tablet ) 10 Mg Tablet, 10 MG PO DAILY for FOR ASTHMA, Ref 0 (Reported) Entered as Reported by: RAFY HOOPER on 04/04/201935 Last Taken: Unknown Dose on Unknown Date & Time Last Action: Continued on 04/04/201941 by RAFY HOOPER Sitagliptin Phosphate (Januvia) 50 Mg Tablet, 1 TAB PO DAILY for DM2 for 90 Days, #90 Ref 1 Prescribed by: MARANDA WYNN MD on 04/05/20 1442 Valsartan (Diovan) 80 Mg Tablet, 80 MG PO DAILY for hld for 90 Days, #90 Prescribed by: MARANDA WYNN MD on 04/05/20 1442 Scheduled PRN Acetaminophen (Tylenol) 325 Mg Tablet, 650 MG PO PRN Q6HRS PRN for pain fever>100, (Reported) Entered as Reported by: RAFY HOOPER on 04/04/201935 Last Taken: Unknown Dose on Unknown Date & Time Last Action: New Order on 04/04/201935 by RAFY HOOPER Benzocaine/Menthol (Sore Throat Lozenge) 1 Each Lozenge, 1 EACH MM PRN Q8HRS PRN for sore throat, (Reported) Entered as Reported by: RAFY HOOPER on 04/04/201935 Last Taken: Unknown Dose on Unknown Date & Time Last Action: New Order on 04/04/201935 by RAFY HOOPER Bismuth Subsalicylate (Kaopectate) 262 Mg Tablet, 30 ML PO PRN Q6HRS PRN for ups et stomach, (Reported) Entered as Reported by: RAFY HOOPER on 04/04/201856 Last Taken: Unknown Dose on Unknown Date & Time Last Action: Converted on 04/04/201941 by RAFY HOOPER Calcium Carbonate (Calcium Carbonate) 500 Mg Tablet, 1 TAB PO PRN Q8HRS PRN for reflux for 30 Days, Ref 0 (Reported) Entered as Reported by: RAFY HOOPER on 04/04/201856 Last Taken: Unknown Dose on Unknown Date & Time Last Action: New Order on 04/04/201856 by RAFY HOOPER Guaifenesin (Robafen) 100 Mg/5 Ml Liquid, 2 TSP PO PRN Q6HRS PRN for nasal congestion, (Reported) Entered as Reported by: RAFY HOOPER on 04/04/201935 Last Taken: Unknown Dose on Unknown Date & Time Last Action: Continued on 04/04/201941 by RAFY HOOPER Hydrocortisone/Aloe Vera (Hydrocortisone Plus 1% Cream) 28.4 Gm Cream..g., 28.4 GM TP PRN Q8HRS PRN for irritation, (Reported) Entered as Reported by: RAFY HOOPER on 04/04/201935 Last Taken: Unknown Dose on Unknown Date & Time Last Action: New Order on 04/04/201935 by RAFY HOOPER Loperamide Hcl (Loperamide) 2 Mg Tablet, 1 TAB PO PRN Q1HR PRN for loose stools for 30 Days, Ref 0 (Reported) Entered as Reported by: RAFY HOOPER on 04/04/201856 Last Action: New Order on 04/04/201856 by RAFY HOOPER Magnesium Hydroxide (Milk Of Magnesia) 2,400 Mg/10 Ml Oral.susp, 2,400 MG PO PRN Q8HRS PRN for constipation, (Reported) Entered as Reported by: RAFY HOOPER on 04/04/201935 Last Taken: Unknown Dose on Unknown Date & Time Last Action: New Order on 04/04/201935 by RAFY HOOPER Polyethylene Glycol 3350 (Polyethylene Glycol 3350) 2,500 Gm Powder, 17 GM PO PRN Q8HRS PRN for constipation, #255 Ref 0 (Reported) Entered as Reported by: RAFY HOOPER on 04/04/201935 Last Taken: Unknown Dose on Unknown Date & Time Last Action: New Order on 04/04/201935 by RAFY HOOPER Sodium Chloride (Deep Sea) 44 Ml [place], 44 ML NS PRN Q8HRS PRN for congestion, (Reported) Entered as Reported by: RAFY HOOPER on 04/04/201856 Last Taken: Unknown Dose on Unknown Date & Time Last Action: Continued on 04/04/201941 by RAFY HOOPER Discontinued Medications Acetaminophen (Acetaminophen) 500 Mg Tablet, 2 TAB PO PRN Q6HRS PRN for pain or fever for 15 Days, #60 Ref 0 (Reported) Entered as Reported by: RAFY HOOPER on 04/04/201935 Last Taken: Unknown Dose on Unknown Date & Time Last Action: Continued on 04/04/201941 by RAFY HOOPER Alprazolam (Xanax) 0.25 Mg Tablet, 0.25 MG PO PRN Q8HRS PRN for ANXIETY / AGITATION, Ref 0 (Reported) Entered as Reported by: RAFY HOOPER on 04/04/201856 Last Taken: Unknown Dose on Unknown Date & Time Last Action: New Order on 04/04/201856 by RAFY HOOPER Furosemide (Furosemide) 40 Mg Tablet, 1 TAB PO DAILY for edema, #30 Ref 5 (Reported) Entered as Reported by: RAFY HOOPER on 04/04/201935 Last Taken: Unknown Dose on Unknown Date & Time Last Action: New Order on 04/04/201935 by RAFY HOOPER Glipizide (Glipizide) 10 Mg Tablet, 1 TAB PO BID for DM, #60 Ref 5 (Reported) Entered as Reported by: RAFY HOOPER on 04/04/201856 Last Taken: Unknown Dose on Unknown Date & Time Last Action: New Order on 04/04/201856 by RAFY HOOPER Ibuprofen (Ibuprofen) 400 Mg Tablet, 400 MG PO PRN Q6HRS PRN for INFLAMMATION, (Reported) Entered as Reported by: RAFY HOOPER on 04/04/201935 Last Taken: Unknown Dose on Unknown Date & Time Last Action: New Order on 04/04/201935 by RAFY HOOPER Meloxicam (Meloxicam) 7.5 Mg Tablet, 1 TAB PO DAILY for arthritis for 30 Days, #30 Ref 0 (Reported) Entered as Reported by: RAFY HOOPER on 04/04/201935 Last Taken: Unknown Dose on Unknown Date & Time Last Action: New Order on 04/04/201935 by RAFY HOOPER Justicifation of Admission Dx: Justifications for Admission: Justification of Admission Dx: Yes Altered Mental Status: Altered Mental Status MARANDA WYNN MD Apr 05, 2020 14:50
[2020-04-05 14:51] VITALS: BP 158/68
--- NOTE | 2020-04-05 16:07 | NUR ---
SW following for discharge planning. Spoke with RN and reviewed chart. Pt to discharge back to [facility] today at 2000 via [facility] with [facility]. Transportation for COIVD positive patients is backed up at this time and [facility] will call if they can get pt sooner. Discharge orders phoned and faxed. Spoke with LUCIANO at [facility]. RN to call report. Packet of clinicals ready to be sent with pt. No further SW needs at this time.
--- NOTE | 2020-04-05 16:46 | NUR ---
This RN attempted to call report to [facility] at [phone] with no answer. Will try again at a later time.
[2020-04-05 19:00] VITALS: BP 163/68
--- NOTE | 2020-04-05 19:45 | NUR ---
Patient discharged back to [facility] assisted living-dementia unit
[2020-04-05] MEDS ORDERED: ENOXAPARIN 40 MG/0.4 ML SYRINGE. SQ SCH (21:00)
== END 2020-04-05 19:45 | disposition home health service (06) | DRG 637 ==
LOC: ER 17:47 → ED HOLD 20:11 → 6 SOUTH 04-04 16:54
PROVIDERS: ADMIT Internal Medicine; ATTEND Internal Medicine
DX: E11.649 Type 2 diabetes mellitus with hypoglycemia without coma (principal); U07.1 COVID-19; G93.41 Metabolic encephalopathy; N17.0 Acute kidney failure with tubular necrosis; M19.90 Unspecified osteoarthritis, unspecified site; F41.9 Anxiety disorder, unspecified; J45.909 Unspecified asthma, uncomplicated; E78.00 Pure hypercholesterolemia, unspecified; E78.5 Hyperlipidemia, unspecified; G20 Parkinson's disease; E87.6 Hypokalemia; I10 Essential (primary) hypertension; K59.00 Constipation, unspecified; Z66 Do not resuscitate
CPT/HCPCS: 36415; 71045; 80048; 80053; 81001; 82962; 83735; 84484; 85025; 93005; J1644; J1815; J3480; J7042; 92610-GN; 97530-GP; G0378